=== PATIENT | male | born 1935 | race Caucasian/White ===

== ENCOUNTER → 2016-04-24 | Outpatient (CLI) | payer OTHER ==
[~2016-04-24] MED LIST: ACYC1CAP8 PO; AMLO-114 PO; ASCA500 PO; CHOL100010 PO; CLOP1TAB15 PO; DIFL0.0519 OPR; FINA5TAB PO; INSPMPNVLG; LISI-725 PO; LISI-792 PO; POLY335019 PO; TERA5CAP PO; VITA400C15 PO
[2016-04-24 12:31] LABS: BASO % 0.5 %; BASO ABS # 0.03 K/uL (0-0.2); COMPLETE YES; EOS % 2.2 %; HEMATOCRIT 38.8 % (42-52); LYMPH % 17.7 %; LYMPH ABS # 1.07 K/uL (1.2-3.4); MEAN CELL VOLUME 94.2 fL (80-100); MEAN CORPUSCULAR HEMOGLOBIN 31.6 pg (25-34); MEAN CORPUSCULAR HGB CONC 33.5 g/dl (32-36); MEAN PLATELET VOLUME 11.1 fL (7.4-10.4); MONO % 11.3 %; NEUT % 68.3 %; PLATELET COUNT 205 K/uL (130-400); RED BLOOD COUNT 4.12 M/uL (4.7-6.1); WHITE BLOOD COUNT 6.04 K/uL (4.8-10.8)
[2016-04-24 14:18] LABS: ALT/SGPT 23 U/L (12-78); AST/SGOT 15 U/L (15-37); BLOOD UREA NITROGEN 16 mg/dl (7-18); BUN/CREATININE RATIO 17.4 (10-20); CALCIUM 8.6 mg/dl (8.5-10.1); CARBON DIOXIDE 30 mmol/L (21-32); CHLORIDE 104 mmol/L (98-107); CHOLESTEROL 152 mg/dl (0-200); CREATININE 0.94 mg/dl (0.60-1.40); GLUCOSE 224 mg/dl (70-99); POTASSIUM 4.7 mmol/L (3.5-5.1); SODIUM 141 mmol/L (136-145); TRIGLYCERIDES 70 mg/dl (0-150); VERY LOW DENSITY LIPOPROT CALC 14 mg/dl
[2016-04-24 14:28] LABS: ALB/GLOB RATIO 1.4 (0.9-2); ALKALINE PHOSPHATASE 71 U/L (45-117); CHOLESTEROL/HDL RATIO 1.8; HDL CHOLESTEROL 84 mg/dl; LDL CHOLESTEROL CALCULATED 54 mg/dl; THYROID STIMULATING HORMONE 0.811 uIu/ml (0.300-4.500)
--- NOTE | 2016-04-28 08:54 | CODING QUERY MEDICAL NECESSITY ---
SUPPORTING DIAGNOSIS NEEDED Dr. Yuan, A supporting diagnosis is required for the test/procedure performed on this patient in order for us to be reimbursed by the patient's insurance. Please provide a supporting diagnosis for the following test/procedure listed below next to the test name along with your signature. *If there is no additional diagnosis for this patient that would support the following test/procedure please document that below next to the test/procedure. Test(s)/Procedure(s) that require a supporting diagnosis: * ([id number]) VITAMIN D ASSAY DIAGNOSIS: DATE OF SERVICE: 04/24/16 Provider Signature: Date: Thank you [facility] Information Management Once completed, please kindly fax back to [phone] For questions please call [phone]
== END | disposition home or self-care (01) ==
LOC: C.LABPBG 07:57
PROVIDERS: ATTEND Internal Medicine Geriatric Medicine
DX: E10.49 Type 1 diabetes mellitus with other diabetic neurological complication (principal); I10 Essential (primary) hypertension; E78.5 Hyperlipidemia, unspecified; D64.9 Anemia, unspecified

== ENCOUNTER → 2016-06-14 | Outpatient (CLI) | payer OTHER ==
[~2016-06-14] MED LIST changes: +ACYC-57 PO; -ACYC1CAP8 PO
== END ==
LOC: C.LABPBG 07:39
PROVIDERS: ATTEND Urology
DX: C67.9 Malignant neoplasm of bladder, unspecified (principal); R97.20 Elevated prostate specific antigen [PSA]; N40.1 Benign prostatic hyperplasia with lower urinary tract symptoms

== ENCOUNTER → 2016-07-18 | Outpatient (CLI) | payer OTHER ==
[2016-07-18 18:13] LABS: LYME DISEASE AB IGG NEG (NEG); LYME DISEASE AB IGM NEG (NEG)
== END | disposition home or self-care (01) ==
LOC: C.LABPBG 11:47
PROVIDERS: ATTEND Physician Assistant
DX: M25.551 Pain in right hip (principal)

== ENCOUNTER → 2016-08-08 | Outpatient (CLI) | payer OTHER | END | disposition home or self-care (01) | LOC: C.LABPBG 08:30 | PROVIDERS: ATTEND Physician Assistant | DX: M62.81 Muscle weakness (generalized) (principal) ==

== ENCOUNTER → 2016-08-21 | Outpatient (CLI) | payer OTHER ==
[2016-08-21 13:06] LABS: ESTIMATED AVERAGE GLUCOSE 177 mg/dl; HA1C FLAG Normal (Normal)
== END | disposition home or self-care (01) ==
LOC: C.LABPBG 09:29
PROVIDERS: ATTEND Nurse Practitioner Adult Health
DX: E10.49 Type 1 diabetes mellitus with other diabetic neurological complication (principal)

== ENCOUNTER → 2016-11-21 | Outpatient (CLI) | payer OTHER ==
[~2016-11-21] MED LIST changes: -ACYC-57 PO; +ACYC1CAP8 PO
[2016-11-21 11:55] LABS: BASO % 0.3 %; BASO ABS # 0.02 K/uL (0-0.2); COMPLETE YES; EOS % 1.1 %; IG% 0.2 %; LYMPH % 28.8 %; LYMPH ABS # 1.85 K/uL (1.2-3.4); MEAN CORPUSCULAR HEMOGLOBIN 32.2 pg (25-34); MEAN CORPUSCULAR HGB CONC 32.6 g/dl (32-36); MEAN PLATELET VOLUME 10.6 fL (7.4-10.4); MONO % 7.9 %; NEUT % 61.7 %; PLATELET COUNT 216 K/uL (130-400); RED BLOOD COUNT 3.94 M/uL (4.7-6.1); WHITE BLOOD COUNT 6.42 K/uL (4.8-10.8)
[2016-11-21 12:14] LABS: BLOOD UREA NITROGEN 22 mg/dl (7-18); BUN/CREATININE RATIO 22.7 (10-20); CALCIUM 8.6 mg/dl (8.5-10.1); CARBON DIOXIDE 30 mmol/L (21-32); CHLORIDE 103 mmol/L (98-107); CREATININE 0.95 mg/dl (0.60-1.40); GLUCOSE 237 mg/dl (70-99); POTASSIUM 3.8 mmol/L (3.5-5.1); SODIUM 138 mmol/L (136-145)
[2016-11-21 12:22] LABS: ESTIMATED AVERAGE GLUCOSE 140 mg/dl; HA1C FLAG Normal (Normal)
--- NOTE | 2016-12-04 14:33 | CODING QUERY MEDICAL NECESSITY ---
CQSUPPORTING DIAGNOSIS NEEDED A supporting diagnosis is required for the test/procedure performed on this patient in order for us to be reimbursed by the patient's insurance. Please provide a supporting diagnosis for the following test/procedure listed below next to the test name along with your signature. *If there is no additional diagnosis for this patient that would support the following test/procedure please document that below next to the test/procedure. Test(s)/Procedure(s) that require a supporting diagnosis: DOS 11/21/16 VITAMIN B12 TEST Provider Signature: Date: Thank you Tyesha [facility] Information Management Once completed, please kindly fax back to [phone] For questions please call [phone]
== END | disposition home or self-care (01) ==
LOC: C.LABPBG 07:28
PROVIDERS: ATTEND Internal Medicine Geriatric Medicine
DX: E10.49 Type 1 diabetes mellitus with other diabetic neurological complication (principal); Z79.4 Long term (current) use of insulin; I10 Essential (primary) hypertension; D64.9 Anemia, unspecified; M35.3 Polymyalgia rheumatica

== ENCOUNTER → 2016-12-12 | Outpatient (CLI) | payer OTHER ==
[2016-12-12 13:14] LABS: CHOLESTEROL/HDL RATIO 1.8
== END | disposition home or self-care (01) ==
LOC: C.LABPBG 07:38
PROVIDERS: ATTEND Internal Medicine Geriatric Medicine
DX: E78.5 Hyperlipidemia, unspecified (principal); M35.3 Polymyalgia rheumatica

== ENCOUNTER → 2016-12-28 | Outpatient (CLI) | payer OTHER ==
[~2016-12-28] MED LIST changes: +ACYC-57 PO; -ACYC1CAP8 PO
== END | disposition home or self-care (01) ==
LOC: C.MAMM 11:13
PROVIDERS: ATTEND Internal Medicine Geriatric Medicine
DX: M85.88 Other specified disorders of bone density and structure, other site (principal); M85.852 Other specified disorders of bone density and structure, left thigh; M85.851 Other specified disorders of bone density and structure, right thigh; Z51.81 Encounter for therapeutic drug level monitoring; Z79.52 Long term (current) use of systemic steroids

== ENCOUNTER → 2017-01-08 | Outpatient (CLI) | payer OTHER | END | disposition home or self-care (01) | LOC: C.LABPBG 08:44 | PROVIDERS: ATTEND Internal Medicine Rheumatology | DX: Z79.52 Long term (current) use of systemic steroids (principal); M54.2 Cervicalgia ==

== ENCOUNTER → 2017-02-12 | Outpatient (CLI) | payer OTHER ==
[2017-02-12 11:40] LABS: BASO % 0.2 %; BASO ABS # 0.02 K/uL (0-0.2); COMPLETE YES; EOS % 0.2 %; HEMATOCRIT 40.3 % (42-52); IG% 0.1 %; LYMPH % 12.4 %; LYMPH ABS # 1.03 K/uL (1.2-3.4); MEAN CORPUSCULAR HEMOGLOBIN 33.3 pg (25-34); MONO % 4.8 %; NEUT % 82.3 %; PLATELET COUNT 224 K/uL (130-400); RED BLOOD COUNT 3.99 M/uL (4.7-6.1); WHITE BLOOD COUNT 8.28 K/uL (4.8-10.8)
[2017-02-12 11:53] LABS: BLOOD UREA NITROGEN 22 mg/dl (7-18); BUN/CREATININE RATIO 23.8 (10-20); CALCIUM 8.8 mg/dl (8.5-10.1); CARBON DIOXIDE 30 mmol/L (21-32); CHLORIDE 104 mmol/L (98-107); CREATININE 0.94 mg/dl (0.60-1.40); GLUCOSE 183 mg/dl (70-99); POTASSIUM 4.2 mmol/L (3.5-5.1); SODIUM 139 mmol/L (136-145)
[2017-02-12 12:03] LABS: THYROID STIMULATING HORMONE 0.773 uIu/ml (0.300-4.500)
== END | disposition home or self-care (01) ==
LOC: C.LABPBG 08:43
PROVIDERS: ATTEND Internal Medicine Rheumatology
DX: E78.5 Hyperlipidemia, unspecified (principal); D64.9 Anemia, unspecified; M35.3 Polymyalgia rheumatica

== ENCOUNTER → 2017-02-22 | Outpatient (CLI) | payer OTHER ==
[2017-02-22 13:09] LABS: ESTIMATED AVERAGE GLUCOSE 140 mg/dl; HA1C FLAG Normal (Normal)
== END | disposition home or self-care (01) ==
LOC: C.LABPBG 09:55
PROVIDERS: ATTEND Nurse Practitioner Adult Health
DX: Z51.81 Encounter for therapeutic drug level monitoring (principal); Z79.52 Long term (current) use of systemic steroids; E78.5 Hyperlipidemia, unspecified; E10.49 Type 1 diabetes mellitus with other diabetic neurological complication; Z79.4 Long term (current) use of insulin

== ENCOUNTER → 2017-04-05 | Outpatient (CLI) | payer OTHER | END | disposition home or self-care (01) | LOC: C.LABPBG 08:42 | PROVIDERS: ATTEND Internal Medicine Rheumatology | DX: M35.3 Polymyalgia rheumatica (principal); Z51.81 Encounter for therapeutic drug level monitoring; Z79.52 Long term (current) use of systemic steroids ==

== ENCOUNTER → 2017-05-28 | Outpatient (CLI) | payer OTHER | END | disposition home or self-care (01) | LOC: C.LABPBG 08:41 | PROVIDERS: ATTEND Internal Medicine Rheumatology | DX: M35.3 Polymyalgia rheumatica (principal); Z79.52 Long term (current) use of systemic steroids ==

== ENCOUNTER → 2017-07-02 | Outpatient (CLI) | payer OTHER | END | disposition home or self-care (01) | LOC: C.LABPBG 07:57 | PROVIDERS: ATTEND Internal Medicine Rheumatology | DX: M35.3 Polymyalgia rheumatica (principal); Z79.52 Long term (current) use of systemic steroids; M54.5 Low back pain ==

== ENCOUNTER → 2017-07-23 | Outpatient (CLI) | payer OTHER ==
[2017-07-23 13:30] LABS: HEMOGLOBIN A1C 6.8 % (4.5-5.6)
== END | disposition home or self-care (01) ==
LOC: C.LABPBG 07:45
PROVIDERS: ATTEND Nurse Practitioner Adult Health
DX: E10.49 Type 1 diabetes mellitus with other diabetic neurological complication (principal)

== ENCOUNTER → 2017-10-01 | Outpatient (CLI) | payer OTHER ==
[~2017-10-01] MED LIST changes: -AMLO-114 PO; +AMLO10TA3 PO
== END | disposition home or self-care (01) ==
LOC: C.LABPBG 08:48
PROVIDERS: ATTEND Internal Medicine Rheumatology
DX: M54.2 Cervicalgia (principal); M35.3 Polymyalgia rheumatica; Z79.52 Long term (current) use of systemic steroids

== ENCOUNTER 2023-02-11 08:09 | Observation (INO) ==
--- NOTE | 2023-02-11 08:36 | Emergency Department Note ---
Impression & Plan Chest pain, Type 1 diabetes mellitus with hyperglycemia, Tick bite of forearm ED Provider Note Provider: Reji Angel MD DATE OF SERVICE: 02/11/2023 CHIEF COMPLAINT: Chest pain, tick bite, high blood sugars HISTORY OF PRESENT ILLNESS: Patient is a 87-year-old gentleman history of CAD without stent, type 1 diabetes, PMR, hypertension, and arthritis presenting here today with with several complaints. Initially, the noted this morning a tick bite on his right arm. Did not try to remove it as he felt he might not get it all and thus came here for evaluation. [facility]. Denies other tick bites. Patient states he was however experiencing chest pain this morning. Central across the chest with some radiation of the left arm. Worse with movement. Denies shortness of breath. Denies nausea or vomiting or abdominal pain. Patient did have breakfast this morning and chest discomfort started after this within the last hour or so. States maybe rarely he has had pain like this before but not regularly. Patient and say they also just checked his Dexcom and his blood sugars in the 400s. Evidently has some difficulty controlling his blood sugars but this is high. Again denies shortness of breath. Has been taking his medications and using his insulin pump. Is scheduled to see PCP this coming week as he noticed a small bump under his right nipple on his chest. Patient states hives and allergic reaction to aspirin and is on Plavix. Denies fever or URI symptoms. Some chronic slight leg swelling. No travel. PAST MEDICAL HISTORY: As noted above MEDICATIONS: Reviewed home medications SOCIAL HISTORY: PHYSICAL EXAM: GENERAL: alert and oriented in no acute distress on stretcher Head: normocephalic and atraumatic EYES: No injection, discharge or icterus. NECK: Trachea midline. ENT: Mucous membranes pink and moist. LUNGS: Airway patent. No retractions. Breath sounds clear with good air entry bilaterally. HEART: Regular rate and rhythm. No chest wall tenderness. Under the right nipple there is a small less than centimeter slight subcutaneous appreciable nodule. No surrounding erythema or crepitus. ABDOMEN: Soft and non-tender, without guarding or rebound. Dexcom in the left abdomen with insulin pump in the right abdomen in place. SKIN: Acyanotic, warm, dry, without rashes EXTREMITIES: 1+ bilateral lower extremity edema with the patient states is unchanged. Does have an embedded tick not severely engorged in the right proximal forearm on the medial anterior aspect with approximately 2 cm surrounding area of erythema without fluctuance, bleeding, area of clearing of the erythema NEUROLOGICAL: No focal deficits. No aphasia. No facial droop or slurred speech. Ambulatory. EK bpm sinus rhythm with PAC. No PVC. No acute ST segment elevation. QTc 428. CONTINUOUS CARDIAC MONITORING: was ordered and showed a heart rate of 80s-90s bpm in normal sinus rhythm Patient's laboratory studies and imaging reviewed. Differential includes Cardiac ischemia, aortic dissection, pulmonary embolism, pneumothorax, pneumonia, pericarditis, myocarditis, esophageal rupture, GERD, cholecystitis, pancreatitis, musculoskeletal, as well as other pathologies. IMPRESSION/MEDICAL DECISION MAKIN-year-old gentleman diabetic history of cardiac disease with multiple risk factors presenting here with several complaints. Patient with evidence of a tick in the right forearm. Not severely engorged. Some slight surrounding redness. Removed as below without complication. Discussed with patient given one-time dose of doxycycline. Lyme screen was sent here and returns negative but again tick bite just happened. Does not seem significantly cellulitic or as if there is compartment syndrome at this time. More significant complaint is his development of chest pain this morning. Tightness across chest and left arm. Multiple risk factors and some cardiac history. On Plavix. Patient reports severe allergy to aspirin and thus cannot take. EKG obtained without evidence of obvious STEMI. Troponin was sent. Chest x-ray obtained. Low suspicion this represents PE or dissection given the report of the complaint. Do incidentally noticed a small subcutaneous nodule under the nipple but doubt this is etiology of the pain he is currently experiencing and believe this would be stable for outpatient follow-up. In relation to the elevated blood sugar patient did just have breakfast. Chemistries obtained as well as a VBG but the patient does not appear to be in DKA at this time. Discussed with patient the elevated level here at 463 and patient self administered 4 units of insulin from his pump. Will monitor and recheck blood sugar. VBG reassuring without evidence of acidosis. Blood work is without significant acidosis with minimal anemia of 11.6. Some slight pseudohyponatremia 132. No other significant anion gap or electrolyte abnormalities. No acute findings consistent with hepatitis or pancreatitis. Initial troponin 8.7 is reassuring. Blood sugar recheck after an hour after he self administered insulin via his pump is going up some. Will give a small amount of IV insulin as well but IV fluid. While initial troponin is reassuring still having some ongoing discomfort. Discussed with him given his elevated blood sugars and his chest discomfort would strongly recommend that we monitor him here and observe him further in the hospital. Does have elevated heart score. Discussion with him and his although his left arm is now improved was agreeable to stay for further observation given this. Hospitalist contacted. DIAGNOSIS: Tick bite, chest pain, hyperglycemia due to type 1 diabetes DISPOSITION: Hospitalist will evaluate Patient was agreeable with this plan. ED procedure: Performed by myself Tick removal Discussed with the patient & at bedside, proceeded with verbal consent. Tweezers were utilized to remove tick in its entirety from the right proximal forearm. No retained parts noted. Tick removed in 2 segments and appears intact. About a 2 cm area of erythema but no clearing or bull's-eye. No fluctuance. No significant bleeding. Area was cleaned with an alcohol prep pad afterwards. 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 current use of systemic steroids Intermittent claudication Ataxia Benign familial tremor Benign prostatic hyperplasia with urinary obstruction Cerebral atherosclerosis Diabetic peripheral neuropathy Dyslipidemia Insulin pump in place Papillary transitional cell carcinoma of bladder Polymyalgia rheumatica Statin intolerance Chest pain Weakness Viral syndrome (04/27/13) Hypertension Diabetes Anxiety disorder Surgical History History of appendectomy History of hernia repair Hx laparoscopic cholecystectomy History of tonsillectomy and adenoidectomy Hx of colonoscopy complete colonoscopy Hx of cataract surgery History of hernia repair History of appendectomy History of cholecystectomy Family History Father Coronary heart disease Myocardial infarction Unknown Heart disease Lung cancer Mother No problems noted. Brother Myocardial infarction Denies family history of Ovarian cancer Prostate cancer Breast cancer Colorectal cancer Social History (Updated 11/13/22 @ 08:19 by Gia Murry LPN) Smoking Status: Former smoker Tobacco Type: Cigarettes Second Hand Exposure: No; Do You Dip or Chew Tobacco: Yes; Hx Alcohol Use: No Hx Substance Use: No Preferred Language: Emirati Communication Ability: Effective Hearing Ability: Use of Hearing Aid Sanitation Worker Required: No Beliefs That Will Affect Care: None marital status: Current Living Situation: Spouse current occupational status: retired Feels Safe at Home: Yes Childhood Exposure to Second-Hand Smoke: No Diet: regular Diet Comment: regular caffeine: Yes during the past year weight has: remained stable Dental Care, Regularly: Yes Physical Activity Frequency: 3-4 Times per Week Seatbelt Use: always Sunscreen Use: No Allergies Allergies Allergy/AdvReac Type Severity Reaction Status Date / Time celecoxib Allergy Intermediate Hives Verified 02/08/23 09:42 levofloxacin Allergy Intermediate Hives Verified 02/08/23 09:42 tramadol Allergy Intermediate Hives Verified 02/08/23 09:42 strawberry Allergy Mild RASH Verified 02/08/23 09:42 tomato Allergy Mild RASH Verified 02/08/23 09:42 acetaminophen Allergy Unknown Unknown Verified 02/08/23 09:42 aspirin Allergy Unknown Unknown Verified 02/08/23 09:42 atorvastatin Allergy Unknown Unknown Verified 02/08/23 09:42 fluvastatin Allergy Unknown Unknown Verified 02/08/23 09:42 Iodinated Contrast Media Allergy Unknown Unknown Verified 02/08/23 09:42 Penicillins Allergy Unknown Unknown Verified 02/08/23 09:42 simvastatin Allergy Unknown Unknown Verified 02/08/23 09:42 tamsulosin [From Flomax] AdvReac Mild Body aches Verified 02/08/23 09:42 rosuvastatin AdvReac Unknown Unknown Verified 02/08/23 09:42 Home Meds Home Medications Medication Instructions Recorded Confirmed ascorbic acid (vitamin C) 500 mg 500 mg PO DAILY 09/27/18 02/11/23 tablet acyclovir 400 mg tablet 400 mg PO BID 03/09/20 02/11/23 betamethasone dipropionate 0.05 % 1 applic topical DAILY PRN Skin 03/09/20 02/11/23 topical cream Irritation glucagon 0.5 mg/0.1 mL 1 mg subcut .COMPLEX PRN LOW BSG 08/10/21 02/11/23 subcutaneous auto-injector (Gvoke HypoPen 2-Pack) terazosin 5 mg capsule 5 mg PO DAILY 10/13/21 02/11/23 blood sugar diagnostic (OneTouch 04/20/22 02/08/23 Ultra Blue Test Strip) lancets (OneTouch UltraSoft #50 ea 04/20/22 02/08/23 Lancets) amlodipine 5 mg tablet 5 mg PO DAILY 11/13/22 02/11/23 Previous Rx's Medication Instructions Recorded cholecalciferol (vitamin D3) 25 1,000 units PO .COMPLEX #30 caps 08/20/18 mcg (1,000 unit) capsule clopidogrel 75 mg tablet (Plavix) 75 mg PO DAILY #30 tabs 08/20/18 finasteride 5 mg tablet (Proscar) 5 mg PO DAILY #30 tabs 08/20/18 Quick-Set Paradigm (infusion set #45 ea 04/01/19 for insulin pump) Dexcom G6 Sensor (blood-glucose #3 ea 01/16/22 sensor) Dexcom G6 Transmitter #1 ea 01/16/22 (blood-glucose transmitter) insulin syringe-needle U-100 1 mL #100 ea 01/16/22 31 gauge x 5/16" (BD Insulin Syringe Ultra-Fine) Dexcom G6 Supply Chain Systems Manager (blood-glucose #1 ea 01/31/22 meter,continuous) insulin aspart U-100 100 unit/mL 35 - 45 unit (0.35 - 0.45 mL) 07/20/22 subcutaneous solution (Novolog continuous subcutaneous infusion U-100 Insulin aspart) CONTINOUS #50 mL bicalutamide 50 mg tablet (Casodex) 50 mg PO DAILY #30 tabs 11/07/22 lisinopril 40 mg tablet (Zestril) 40 mg PO .COMPLEX #90 tabs 11/13/22 Results & Data (ED) Vital Signs Vital Signs - 24 hr 02/11/23 08:13 02/11/23 08:30 02/11/23 08:30 Temperature 36.8 C Temperature Source Temporal Artery Scan Pulse Rate 95 H Pulse Rate [Apical] Pulse Rate from SpO2 Sensor Pulse Rhythm [Apical] Pulse Strength [Apical] Respiratory Rate 18 Respiratory Effort / Characteristics Respiratory Depth Respiratory Pattern Blood Pressure 82/39 L Blood Pressure [Left Arm] Blood Pressure Mean 53 Blood Pressure Mean [Left Arm] Pulse Oximetry 95 Oxygen Delivery Method Room Air Room Air Room Air Sepsis Recent Fever Within 48 Hours No Sepsis New/Unexplained Change in Mental Status No Sepsis Action Taken by Nursing No Action Required 02/11/23 08:32 02/11/23 08:34 02/11/23 08:37 Temperature Temperature Source Pulse Rate 87 88 90 Pulse Rate [Apical] Pulse Rate from SpO2 Sensor 90 Pulse Rhythm [Apical] Pulse Strength [Apical] Respiratory Rate 17 16 Respiratory Effort / Characteristics Respiratory Depth Respiratory Pattern Blood Pressure Blood Pressure [Left Arm] Blood Pressure Mean Blood Pressure Mean [Left Arm] Pulse Oximetry 95 Oxygen Delivery Method Room Air Sepsis Recent Fever Within 48 Hours Sepsis New/Unexplained Change in Mental Status Sepsis Action Taken by Nursing 02/11/23 08:37 02/11/23 09:00 02/11/23 09:00 Temperature Temperature Source Pulse Rate 87 Pulse Rate [Apical] Pulse Rate from SpO2 Sensor 87 Pulse Rhythm [Apical] Pulse Strength [Apical] Respiratory Rate 18 Respiratory Effort / Characteristics Respiratory Depth Respiratory Pattern Blood Pressure 132/52 L 121/54 L Blood Pressure [Left Arm] Blood Pressure Mean 86 87 Blood Pressure Mean [Left Arm] Pulse Oximetry 93 Oxygen Delivery Method Room Air Sepsis Recent Fever Within 48 Hours Sepsis New/Unexplained Change in Mental Status Sepsis Action Taken by Nursing 02/11/23 09:30 02/11/23 09:30 02/11/23 10:00 Temperature Temperature Source Pulse Rate 87 89 Pulse Rate [Apical] Pulse Rate from SpO2 Sensor 75 90 Pulse Rhythm [Apical] Pulse Strength [Apical] Respiratory Rate 21 18 Respiratory Effort / Characteristics Respiratory Depth Respiratory Pattern Blood Pressure 131/50 L Blood Pressure [Left Arm] Blood Pressure Mean 67 Blood Pressure Mean [Left Arm] Pulse Oximetry 93 93 Oxygen Delivery Method Room Air Room Air Sepsis Recent Fever Within 48 Hours Sepsis New/Unexplained Change in Mental Status Sepsis Action Taken by Nursing 02/11/23 10:00 02/11/23 10:30 02/11/23 10:30 Temperature Temperature Source Pulse Rate 92 H Pulse Rate [Apical] Pulse Rate from SpO2 Sensor 91 H Pulse Rhythm [Apical] Pulse Strength [Apical] Respiratory Rate 20 Respiratory Effort / Characteristics Respiratory Depth Respiratory Pattern Blood Pressure 126/54 L 131/50 L Blood Pressure [Left Arm] Blood Pressure Mean 80 94 Blood Pressure Mean [Left Arm] Pulse Oximetry 94 Oxygen Delivery Method Room Air Sepsis Recent Fever Within 48 Hours Sepsis New/Unexplained Change in Mental Status Sepsis Action Taken by Nursing 02/11/23 11:00 02/11/23 11:00 02/11/23 11:30 Temperature Temperature Source Pulse Rate 88 69 Pulse Rate [Apical] Pulse Rate from SpO2 Sensor Pulse Rhythm [Apical] Pulse Strength [Apical] Respiratory Rate 20 15 Respiratory Effort / Characteristics Respiratory Depth Respiratory Pattern Blood Pressure 138/74 Blood Pressure [Left Arm] Blood Pressure Mean 109 Blood Pressure Mean [Left Arm] Pulse Oximetry Oxygen Delivery Method Sepsis Recent Fever Within 48 Hours Sepsis New/Unexplained Change in Mental Status Sepsis Action Taken by Nursing 02/11/23 12:00 02/11/23 12:00 02/11/23 12:30 Temperature Temperature Source Pulse Rate 79 80 Pulse Rate [Apical] Pulse Rate from SpO2 Sensor 74 Pulse Rhythm [Apical] Pulse Strength [Apical] Respiratory Rate 17 16 Respiratory Effort / Characteristics Respiratory Depth Respiratory Pattern Blood Pressure 139/71 Blood Pressure [Left Arm] Blood Pressure Mean 100 Blood Pressure Mean [Left Arm] Pulse Oximetry 91 Oxygen Delivery Method Room Air Sepsis Recent Fever Within 48 Hours Sepsis New/Unexplained Change in Mental Status Sepsis Action Taken by Nursing 02/11/23 12:30 02/11/23 12:33 02/11/23 12:52 Temperature Temperature Source Pulse Rate 79 Pulse Rate [Apical] 81 Pulse Rate from SpO2 Sensor Pulse Rhythm [Apical] Regular Pulse Strength [Apical] Normal Respiratory Rate 16 Respiratory Effort / Characteristics Non-Labored Spontaneous Respiratory Depth Normal Respiratory Pattern Regular Blood Pressure 138/59 L Blood Pressure [Left Arm] 138/59 L Blood Pressure Mean 91 Blood Pressure Mean [Left Arm] 85 Pulse Oximetry 93 Oxygen Delivery Method Room Air Sepsis Recent Fever Within 48 Hours Sepsis New/Unexplained Change in Mental Status Sepsis Action Taken by Nursing 02/11/23 13:00 02/11/23 13:00 02/11/23 13:30 Temperature Temperature Source Pulse Rate 79 96 H Pulse Rate [Apical] Pulse Rate from SpO2 Sensor 80 Pulse Rhythm [Apical] Pulse Strength [Apical] Respiratory Rate 17 24 Respiratory Effort / Characteristics Respiratory Depth Respiratory Pattern Blood Pressure 124/90 Blood Pressure [Left Arm] Blood Pressure Mean 96 Blood Pressure Mean [Left Arm] Pulse Oximetry 91 Oxygen Delivery Method Room Air Room Air Sepsis Recent Fever Within 48 Hours Sepsis New/Unexplained Change in Mental Status Sepsis Action Taken by Nursing 02/11/23 14:15 Temperature Temperature Source Pulse Rate 92 H Pulse Rate [Apical] Pulse Rate from SpO2 Sensor Pulse Rhythm [Apical] Pulse Strength [Apical] Respiratory Rate 25 H Respiratory Effort / Characteristics Respiratory Depth Respiratory Pattern Blood Pressure Blood Pressure [Left Arm] Blood Pressure Mean Blood Pressure Mean [Left Arm] Pulse Oximetry 92 Oxygen Delivery Method Room Air Sepsis Recent Fever Within 48 Hours Sepsis New/Unexplained Change in Mental Status Sepsis Action Taken by Nursing Laboratory Data 02/11/23 08:30 02/11/23 11:31 Lab Results 02/11/23 02/11/23 02/11/23 Range/Units 08:30 08:35 09:52 WBC 9.24 (4.8-10.8) K/ul RBC 3.60 L (4.70-6.10) M/uL Hgb 11.6 L (14.0-18.0) g/dl Hct 35.1 L (42.0-52.0) % MCV 97.5 (80.0-100.0) fL MCH 32.2 (25.0-34.0) pg MCHC 33.0 (32.0-36.0) g/dL RDW Std Deviation 46.3 (36.4-46.3) fL RDW Coeff of Yenifer 12.9 (11.5-14.5) % Plt Count 220 (130-400) K/uL MPV 10.9 (9.4-12.4) fL Immature Gran % (Auto) 0.3 % Neut % (Auto) 81.0 % Lymph % (Auto) 8.5 % [place] % (Auto) 7.9 % Eos % (Auto) 2.1 % Baso % (Auto) 0.2 % Neut # (Auto) 7.48 H (1.40-6.50) K/uL Lymph # (Auto) 0.79 L (1.20-3.40) K/uL [place] # (Auto) 0.73 H (0.11-0.59) K/uL Eos # (Auto) 0.19 (0.00-0.50) K/uL Baso # (Auto) 0.02 (0.00-0.20) K/uL Immature Gran # (Auto) 0.03 (0.01-0.20) K/uL PT 11.7 (9.0-12.0) Seconds INR 1.1 (0.9-1.1) APTT 28 (21-31) Seconds PTT Ratio 1.0 VBG pH 7.37 (7.36-7.41) VBG pCO2 39 (38-50) mmHg VBG pO2 60 mmHg VBG HCO3 23 mmol/L VBG O2 Saturation 91.7 % VBG Base Excess -2.5 mEq/L Sodium 132 L (136-145) mmol/L Potassium 4.8 (3.5-5.1) mmol/L Chloride 99 (98-107) mmol/L Carbon Dioxide 23 (21-32) mmol/L Anion Gap 10 (3-11) BUN 22 (6-23) mg/dl Creatinine 1.07 (0.6-1.4) mg/dl Est Cr Clr Drug Dosing 49.3 ml/min Est GFR ( Amer) 71.5 ml/min Est GFR (Non-Af Amer) 61.7 ml/min BUN/Creatinine Ratio 20.6 H (10-20) Glucose 475 H* (70-99(Fasting)) mg/dl POC Glucose 463 H* 497 H* (70-99) mg/dl Calcium 8.7 (8.6-10.3) mg/dl Phosphorus (2.5-4.9) mg/dl Magnesium (1.7-2.4) mg/dl Total Bilirubin 1.3 H (0.2-1.0) mg/dl AST 21 (13-39) U/L ALT 13 (7-52) U/L Alkaline Phosphatase 116 H (34-104) U/L Troponin I High Sens 8.7 (0-20) pg/ml Total Protein 5.8 L (6.0-8.3) gm/dl Albumin 3.6 (3.4-5.0) gm/dl Globulin 2.2 L (2.5-4.0) gm/dl Albumin/Globulin Ratio 1.6 (0.9-2) Lipase 13 (11-82) U/L Lyme Disease IgG Ab Negative (Negative) Lyme Disease IgM Ab Negative (Negative) 02/11/23 02/11/23 02/11/23 Range/Units 11:30 11:31 13:26 WBC (4.8-10.8) K/ul RBC (4.70-6.10) M/uL Hgb (14.0-18.0) g/dl Hct (42.0-52.0) % MCV (80.0-100.0) fL MCH (25.0-34.0) pg MCHC (32.0-36.0) g/dL RDW Std Deviation (36.4-46.3) fL RDW Coeff of Yenifer (11.5-14.5) % Plt Count (130-400) K/uL MPV (9.4-12.4) fL Immature Gran % (Auto) % Neut % (Auto) % Lymph % (Auto) % [place] % (Auto) % Eos % (Auto) % Baso % (Auto) % Neut # (Auto) (1.40-6.50) K/uL Lymph # (Auto) (1.20-3.40) K/uL [place] # (Auto) (0.11-0.59) K/uL Eos # (Auto) (0.00-0.50) K/uL Baso # (Auto) (0.00-0.20) K/uL Immature Gran # (Auto) (0.01-0.20) K/uL PT (9.0-12.0) Seconds INR (0.9-1.1) APTT (21-31) Seconds PTT Ratio VBG pH (7.36-7.41) VBG pCO2 (38-50) mmHg VBG pO2 mmHg VBG HCO3 mmol/L VBG O2 Saturation % VBG Base Excess mEq/L Sodium 133 L (136-145) mmol/L Potassium 4.3 (3.5-5.1) mmol/L Chloride 102 (98-107) mmol/L Carbon Dioxide 25 (21-32) mmol/L Anion Gap 6 (3-11) BUN 26 H (6-23) mg/dl Creatinine 1.05 (0.6-1.4) mg/dl Est Cr Clr Drug Dosing 50.2 ml/min Est GFR ( Amer) 73.1 ml/min Est GFR (Non-Af Amer) 63.1 ml/min BUN/Creatinine Ratio 24.8 H (10-20) Glucose 486 H* (70-99(Fasting)) mg/dl POC Glucose 405 H* 334 H* (70-99) mg/dl Calcium 7.9 L (8.6-10.3) mg/dl Phosphorus 2.0 L (2.5-4.9) mg/dl Magnesium 1.9 (1.7-2.4) mg/dl Total Bilirubin (0.2-1.0) mg/dl AST (13-39) U/L ALT (7-52) U/L Alkaline Phosphatase (34-104) U/L Troponin I High Sens 13.2 D (0-20) pg/ml Total Protein (6.0-8.3) gm/dl Albumin (3.4-5.0) gm/dl Globulin (2.5-4.0) gm/dl Albumin/Globulin Ratio (0.9-2) Lipase (11-82) U/L Lyme Disease IgG Ab (Negative) Lyme Disease IgM Ab (Negative) Administered Medications Insulin Human Regular 250 (units/ Sodium Chloride) 250 mls @ 1 mls/hr IV .Q24H [facility]; Protocol Stop: 03/13/23 11:44 Last Titration: 02/11/23 13:31 Dose: 1 units/hr, 1 mls/hr Documented By: ALCON Co-signed By: NELSON Admin: 02/11/23 12:10 Dose: 0.8 units/hr, 0.8 mls/hr Documented By: ALCON Co-signed By: REZA Potassium Chloride 20 meq/ (Parenteral Electrolytes) 1,010 mls @ 125 mls/hr IV .Q8H5M CHARLIE Stop: 03/13/23 11:59 Last Admin: 02/11/23 12:29 Dose: 125 mls/hr Documented By: ALCON Discontinued Medications Doxycycline Hyclate (Doxycycline Hyclate 100 Mg Cap) 200 mg PO NOW STA Stop: 02/11/23 10:27 Last Admin: 02/11/23 11:01 Dose: 200 mg Documented By: REZA Sodium Chloride (Nss) 500 mls @ 999 mls/hr IV .Q31M ONE Stop: 02/11/23 10:37 Last Infusion: 02/11/23 11:10 Dose: Infused Documented By: Admin: 02/11/23 10:24 Dose: 999 mls/hr Documented By: ALCON Sodium Chloride (Nss) 1,000 mls @ 999 mls/hr IV .Q1H1M ONE Stop: 02/11/23 12:00 Last Infusion: 02/11/23 12:10 Dose: Infused Documented By: Admin: 02/11/23 11:09 Dose: 999 mls/hr Documented By: NELSON Famotidine 20 mg/ Syringe 5 mls @ 2.5 mls/min IV NOW ONE Stop: 02/11/23 11:31 Last Admin: 02/11/23 11:31 Dose: 2.5 mls/min Documented By: ALCON Insulin Human Regular (Novolin-R Insulin Per Unit Charge) 5 units IV NOW STA Stop: 02/11/23 10:08 Last Admin: 02/11/23 10:25 Dose: 5 units Documented By: ALCON Co-signed By: AM Imaging Data Radiologist's Impression: Chest X-Ray 02/11/23 08:16 XR chest 1V portable HISTORY: 87 years-old Male Chest pain, nonspecific COMPARISON: 08/11/2022 TECHNIQUE: AP view of the chest FINDINGS: Cardiac silhouette is upper limits of normal in size. Mild chronic interstitial coarsening. No pneumothorax, pleural effusion or overt pulmonary edema. Mild linear left basilar atelectasis versus scarring. Healed chronic left rib fractures. Left shoulder rotator cuff calcific tendinosis. IMPRESSION: No acute process of the chest. ACT 112: Negative or not required by law. The above report was generated using voice recognition software. It may contain grammatical, syntax or spelling errors. Electronically signed by: Davis Wray M.D. 02/11/2023 9:10 AM Discharge Plan Visit Data Chief Complaint: Chest Pain Stated Complaint: CHEST PAIN, TICK BITE ED Provider: Reji Angel Discharge Problem: Chest pain, Type 1 diabetes mellitus with hyperglycemia, Tick bite of forearm Patient Disposition: Being Evaluated by Hospitalist Forms Stand Alone Forms: [facility] Prescriptions Prescriptions: No Action (DME) Quick-Set Paradigm Infusion Set See Rx Instructions .ROUTE .MEDSUPPLY Qty: 45 3RF Rx Instructions: insert a new one every 2-3 days (DME) Dexcom G6 Supply Chain Systems Manager Misc See Rx Instructions .Route Qty: 1 0RF Rx Instructions: Use to monitor blood sugars daily cholecalciferol (vitamin D3) 1,000 unit capsule 1,000 units PO .COMPLEX Qty: 30 5RF Rx Instructions: 1,000 unit PO Take one tablet in the summer - 3 tablets in the winter. ; clopidogrel [Plavix] 75 mg tablet 75 mg PO DAILY Qty: 30 5RF finasteride [Proscar] 5 mg tablet 5 mg PO DAILY Qty: 30 5RF terazosin 5 mg capsule 5 mg PO DAILY (DME) Dexcom G6 Sensor Device See Rx Instructions .Route Qty: 3 5RF Rx Instructions: change every 10 days (DME) Dexcom G6 Transmitter Device See Rx Instructions .Route Qty: 1 3RF Rx Instructions: change every 90 days (DME) insulin syringe-needle U-100 [BD Insulin Syringe Ultra-Fine] 1 mL 31 gauge x 5/16 syringe See Rx Instructions .Route Qty: 100 6RF Rx Instructions: use for Novolog incase of pump failure insulin aspart U-100 [Novolog U-100 Insulin aspart] 100 unit/mL solution 35 - 45 unit continuous subcutaneous infusion CONTINOUS Qty: 50 3RF Rx Instructions: Pt uses pump 35-45 units daily. (DME) OneTouch Ultra Blue Test Strip Strip See Rx Instructions .ROUTE .MEDSUPPLY Rx Instructions: Test blood sugar once daily PRN acyclovir 400 mg tablet 400 mg PO BID betamethasone dipropionate 0.05 % cream 1 applic topical DAILY PRN (Reason: Skin Irritation) amlodipine 5 mg tablet 5 mg PO DAILY lisinopril [Zestril] 40 mg tablet 40 mg PO .COMPLEX Qty: 90 3RF Rx Instructions: 40 mg orally TAKE ONE 1 PILL IN AM; ascorbic acid (vitamin C) 500 mg tablet 500 mg PO DAILY (DME) lancets [OneTouch UltraSoft Lancets] Misc See Rx Instructions .ROUTE .MEDSUPPLY Qty: 50 Rx Instructions: Test blood sugar once daily PRN bicalutamide [Casodex] 50 mg tablet 50 mg PO DAILY Qty: 30 5RF Gvoke HypoPen 2-Pack 0.5 mg/0.1 mL auto-injector 1 mg subcut .COMPLEX PRN (Reason: LOW BSG) Rx Instructions: 1 mg subcut every 20 minutes until target blood sugar reached; Referrals Referrals: Trevor Torres CRNP [Nurse Practitioner] - Discharge Problem: Chest pain Qualifiers: Chest pain type: unspecified Qualified Code(s): R07.9 - Chest pain, unspecified Tick bite of forearm Qualifiers: Encounter type: initial encounter Laterality: right Qualified Code(s): S50.861A - Insect bite (nonvenomous) of right forearm, initial encounter
[2023-02-11 08:48] LABS: Base Excess VBG -2.5 mEq/L; HCO3 VBG 23 mmol/L; Oxygen Saturation VBG 91.7 %; PCO2 VBG 39 mmHg (38-50); PO2 VBG 60 mmHg; pH VBG 7.37 (7.36-7.41)
[2023-02-11 08:56] LABS: Basophils # (auto) 0.02 K/uL (0.00-0.20); Basophils % (auto) 0.2 %; Eosinophils # (auto) 0.19 K/uL (0.00-0.50); Eosinophils % (auto) 2.1 %; Hematocrit (blood only) 35.1 % (42.0-52.0); Hemoglobin 11.6 g/dl (14.0-18.0); Immature Granulocytes # (auto) 0.03 K/uL (0.01-0.20); Immature Granulocytes % (auto) 0.3 %; Lymphocytes # (auto) 0.79 K/uL (1.20-3.40); Lymphocytes % (auto) 8.5 %; Mean Corpuscular Hemoglobin 32.2 pg (25.0-34.0); Mean Corpuscular Volume 97.5 fL (80.0-100.0); Mean Platelet Volume 10.9 fL (9.4-12.4); Monocytes # (auto) 0.73 K/uL (0.11-0.59); Monocytes % (auto) 7.9 %; Neutrophils # (auto) 7.48 K/uL (1.40-6.50); Platelet Count 220 K/uL (130-400); RDW Coefficient of Variation 12.9 % (11.5-14.5); RDW Standard Deviation 46.3 fL (36.4-46.3); White Blood Count 9.24 K/ul (4.8-10.8)
--- NOTE | 2023-02-11 09:11 | XRay Report ---
XR chest 1V portable HISTORY: 87 years-old Male Chest pain, nonspecific COMPARISON: 08/11/2022 TECHNIQUE: AP view of the chest FINDINGS: Cardiac silhouette is upper limits of normal in size. Mild chronic interstitial coarsening. No pneumo thorax, pleural effusion or overt pulmonary edema. Mild linear left basilar atelectasis versus scarri ng. Healed chronic left rib fractures. Left shoulder rotator cuff calcific tendinosis. IMPRESSION: No acute process of the chest. ACT 112: Negative or not required by law. The above report was generated using voice recognition software. It may contain grammatical, syntax o r spelling errors. Electronically signed by: Davis Wray M.D. 02/11/2023 9:10 AM
[2023-02-11 09:20] LABS: Albumin Globulin Ratio 1.6 (0.9-2); Albumin Level 3.6 gm/dl (3.4-5.0); BUN Creatinine Ratio 20.6 (10-20); Bilirubin,Total 1.3 mg/dl (0.2-1.0); Calcium 8.7 mg/dl (8.6-10.3); Creatinine Clr Calc Pharmacy 49.3 ml/min; Est GFR (African American) 71.5 ml/min; Est GFR (Non-African American) 61.7 ml/min; Globulin 2.2 gm/dl (2.5-4.0); Potassium 4.8 mmol/L (3.5-5.1); Total Protein 5.8 gm/dl (6.0-8.3); Troponin I High Sensitivity 8.7 pg/ml (0-20)
[2023-02-11 09:21] LABS: INR 1.1 (0.9-1.1); Partial Thromboplastin Time 28 Seconds (21-31); Prothrombin Time 11.7 Seconds (9.0-12.0)
[2023-02-11 09:39] LABS: Lyme Ab IgG w/WB Rflx Negative (Negative); Lyme Ab IgM w/WB Rflx Negative (Negative)
[2023-02-11] MEDS ORDERED: NovoLIN-R INSULIN PER UNIT CHARGE IV STA (10:07)
[2023-02-11] MEDS ORDERED: SODIUM CHLORIDE 0.9% 500 ML IV ONE (10:07)
[2023-02-11] MEDS ORDERED: DOXYCYCLINE HYCLATE 100 MG CAP PO STA (10:26)
--- NOTE | 2023-02-11 10:58 | History & Physical Report ---
Date of Service February 11, 2023 Assessment & Plan (1) Chest pain: Plan: Patient endorses transverse, "crushing" chest pain across the lower chest that developed around 0700 on 02/11; constant for 2-3h No radiation down the arms or to back; 8/10 at worst EKG revealed sinus rhythm with PACs at 87 bpm; QTc 428 Troponin WNL at 8.7-->13.2 Continuous telemetry monitoring Trend BMP q4h Trend Phosphorous q4h Trend Magnesium q4h Trend VBG q4h A.m. CBC, BMP, mag, troponin (2) Type 1 diabetes mellitus with hyperglycemia: Plan: Patient uses Dexcom and insulin pump at home, but notes episodes of severe hyperglycemia in the 400mg/dL range at home, as well as rebound hypoglycemia in the 40-50mg/dL range Patient follows with diabetes clinic Last A1c at 7.3% on 11/01/2022 POC glucose 497 at time of admission Anion gap WNL at 10 Insulin drip started in the ED with BSG q1h HHS protocol in place Pharmacy glycemic consult Adjust regimen as needed T1DM diet Discussed basal/bolus balance Continue to monitor for hypoglycemia Diabetic education consult Am A1c (3) Tick bite of forearm: Plan: Tick removed from patient's right medial elbow in the ED Patient denies seeing any rashes on his body this past week, but notes he was out walking in the [place] on 02/10 Initial Lyme negative Prophylactic doxycycline 200 mg p.o. given in the ED Famotidine 20 mg IV added for GI discomfort (4) Non-occlusive coronary artery disease: Plan: Patient sustained non-ST segment FL in 2003 Patient takes Plavix 75 mg daily, and reports that he is allergic to aspirin (hives) Continue Plavix (5) Dyslipidemia: Plan: Statin intolerance (6) Papillary transitional cell carcinoma of bladder: Plan: Bladder cancer/LUTS Follows with [facility]; unable to have surgery, per patient Continue finasteride and terazosin (7) Benign prostatic hyperplasia with urinary obstruction: Plan: Continue finasteride (8) Insulin pump in place: Plan: Pause pump while inpatient (9) Hypertension: Plan: Continue amlodipine, lisinopril (10) Lump of right breast: Plan: No overlying cellulitis, nonerythematous, NTP, not warm to touch US right breast ordered, pending Plan Disposition: Admit to PCU telemtetry DNR/DNI T2DM diet (strict monitoring of insulin) VTE PPx: SCDs and heparin 5000u SQ q12h History of Present Illness Chief Complaint: Chest pain Primary Care Provider: Leonela Levine DO Beni is an 87-year-old male with PMH of T1DM, tick bite, statin myopathy, PMR, HTN, dyslipidemia, and nonocclusive CAD. He presented for transverse lower chest pain that developed around 7 AM on the morning of 02/11. Patient's (Luli) is present at the bedside and provides additional history. The patient reports that he developed gradual onset of dull chest pain that lasted for around 2 to 3 hours between 7 AM and 10 AM on 02/11. He describes the pain as "crushing". No radiation to the left arm or to the back. He did not take any pain medication at home. He reports that he tried to walk on the treadmill this morning, as he thought the pain was due to indigestion, however movement did not alleviate the pain. He rated the pain 8/10 at its worst. On arrival in the ED, patient found a tick (engorged) on his right medial elbow, which was removed in the ED. He did report that he was out walking in the [facility] on 02/10. Patient has an extensive history of T1DM and uses a Dexcom and pump for diabetes. He confused 4u insulin this morning, and received an additional 5u in the ED. Reports that he took all of his regular morning medications, including Plavix. The only recent change in medication was for his prostate (finasteride). No history of tick bites or Lyme disease. Patient denies smoking, alcohol use, vaping, and recreational drug use. He endorses using chewing snuff. Vitals stable at time of admission. ED course: Tick removal Regular insulin 5u IV NSS 500 mL Doxycycline 200 mg p.o. ROS: Patient endorses headache (which she believes is secondary to high sugar), transverse chest pain (which has largely resolved in the ED), joint aches, wrist swelling that developed 2 weeks ago, lump under right breast, as well as constipation. Patient denies fever, rashes, bull's-eye rashes, chills, night sweats, dizziness, lightheadedness, SOB, pleuritic CP, abdominal pain, N/V/D, urinary symptoms, burning with urination, numbness or tingling going down the arms or legs. Dexcom/pump settings: Basal 13.65 daily; max basal 2u/hr, max bolus 10u. Patient's reports that his insulin levels are not well-controlled at home, and that he commonly bounces between hyperglycemia (in the 300mg/dL range) and hypoglycemia (in the 40-50mg/dL range). Patient reports he is aspirin (hives) as well as imaging dye/contrast (face swelling). Please see Dr. Varghese's attestation for any changes to treatment plan. Allergies Allergy/AdvReac Type Severity Reaction Status Date / Time celecoxib Allergy Intermediate Hives Verified 02/08/23 09:42 levofloxacin Allergy Intermediate Hives Verified 02/08/23 09:42 tramadol Allergy Intermediate Hives Verified 02/08/23 09:42 strawberry Allergy Mild RASH Verified 02/08/23 09:42 tomato Allergy Mild RASH Verified 02/08/23 09:42 acetaminophen Allergy Unknown Unknown Verified 02/08/23 09:42 aspirin Allergy Unknown Unknown Verified 02/08/23 09:42 atorvastatin Allergy Unknown Unknown Verified 02/08/23 09:42 fluvastatin Allergy Unknown Unknown Verified 02/08/23 09:42 Iodinated Contrast Media Allergy Unknown Unknown Verified 02/08/23 09:42 Penicillins Allergy Unknown Unknown Verified 02/08/23 09:42 simvastatin Allergy Unknown Unknown Verified 02/08/23 09:42 tamsulosin [From Flomax] AdvReac Mild Body aches Verified 02/08/23 09:42 rosuvastatin AdvReac Unknown Unknown Verified 02/08/23 09:42 Home Medications Medication Instructions Recorded Confirmed Type cholecalciferol (vitamin D3) 25 1,000 units PO .COMPLEX #30 caps 08/20/18 02/11/23 Rx mcg (1,000 unit) capsule clopidogrel 75 mg tablet (Plavix) 75 mg PO DAILY #30 tabs 08/20/18 02/11/23 Rx finasteride 5 mg tablet (Proscar) 5 mg PO DAILY #30 tabs 08/20/18 02/11/23 Rx ascorbic acid (vitamin C) 500 mg 500 mg PO DAILY 09/27/18 02/11/23 History tablet Quick-Set Paradigm (infusion set #45 ea 04/01/19 02/08/23 Rx for insulin pump) acyclovir 400 mg tablet 400 mg PO BID 03/09/20 02/11/23 History betamethasone dipropionate 0.05 % 1 applic topical DAILY PRN Skin 03/09/20 02/11/23 History topical cream Irritation glucagon 0.5 mg/0.1 mL 1 mg subcut .COMPLEX PRN LOW BSG 08/10/21 02/11/23 History subcutaneous auto-injector (Gvoke HypoPen 2-Pack) terazosin 5 mg capsule 5 mg PO DAILY 10/13/21 02/11/23 History Dexcom G6 Sensor (blood-glucose #3 ea 01/16/22 02/08/23 Rx sensor) Dexcom G6 Transmitter #1 ea 01/16/22 02/08/23 Rx (blood-glucose transmitter) insulin syringe-needle U-100 1 mL #100 ea 01/16/22 02/08/23 Rx 31 gauge x 5/16" (BD Insulin Syringe Ultra-Fine) Dexcom G6 Microfilm Camera Operator (blood-glucose #1 ea 01/31/22 02/08/23 Rx meter,continuous) blood sugar diagnostic (OneTouch 04/20/22 02/08/23 History Ultra Blue Test Strip) lancets (OneTouch UltraSoft #50 ea 04/20/22 02/08/23 History Lancets) insulin aspart U-100 100 unit/mL 35 - 45 unit (0.35 - 0.45 mL) 07/20/22 02/11/23 Rx subcutaneous solution (Novolog continuous subcutaneous infusion U-100 Insulin aspart) CONTINOUS #50 mL bicalutamide 50 mg tablet (Casodex) 50 mg PO DAILY #30 tabs 11/07/22 02/11/23 Rx amlodipine 5 mg tablet 5 mg PO DAILY 11/13/22 02/11/23 History lisinopril 40 mg tablet (Zestril) 40 mg PO .COMPLEX #90 tabs 11/13/22 02/11/23 Rx Past Med/Surg History Medical History (Updated 02/11/23 @ 12:06 by Flaquito Tam PA-C) 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 Spermatocele Neck pain 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 Carpal tunnel syndrome of left wrist care home current use of systemic steroids Intermittent claudication Ataxia Benign familial tremor Benign prostatic hyperplasia with urinary obstruction Cerebral atherosclerosis Diabetic peripheral neuropathy Dyslipidemia Insulin pump in place Papillary transitional cell carcinoma of bladder Polymyalgia rheumatica Statin intolerance Chest pain Weakness Viral syndrome (04/27/13) Hypertension Diabetes Anxiety disorder Surgical History History of appendectomy History of hernia repair Hx laparoscopic cholecystectomy History of tonsillectomy and adenoidectomy Hx of colonoscopy complete colonoscopy Hx of cataract surgery History of hernia repair History of appendectomy History of cholecystectomy Family History Father Coronary heart disease Myocardial infarction Unknown Heart disease Lung cancer Mother No problems noted. Brother Myocardial infarction Denies family history of Ovarian cancer Prostate cancer Breast cancer Colorectal cancer Social History (Updated 11/13/22 @ 08:19 by Gia Murry LPN) Smoking Status: Former smoker Tobacco Type: Cigarettes Second Hand Exposure: No; Do You Dip or Chew Tobacco: Yes; Hx Alcohol Use: No Hx Substance Use: No Preferred Language: Danish Communication Ability: Effective Hearing Ability: Use of Hearing Aid Managed Care Coordinator Required: No Beliefs That Will Affect Care: None marital status: Current Living Situation: Spouse current occupational status: retired Feels Safe at Home: Yes Childhood Exposure to Second-Hand Smoke: No Diet: regular Diet Comment: regular caffeine: Yes during the past year weight has: remained stable Dental Care, Regularly: Yes Physical Activity Frequency: 3-4 Times per Week Seatbelt Use: always Sunscreen Use: No Review of Systems Review of Systems: See HPI above Physical Exam Physical Exam: General: no acute distress; pleasant affect; non-toxic appearing; cooperative HEENT: normocephalic, atraumatic; no scleral icterus; PERRLA w/ EOMs intact; moist mucus membrane; vision and hearing grossly intact Neck: supple; no JVD; no lymphadenopathy; trachea midline Skin: warm, dry without signs of tenting; no cyanosis; no rashes, bruising, lesi ons, or erythema noted on the abdomen/back CV: chest wall NTP; 1 cm, nonfirm lump palpated at the right lateral pectoral muscle, NTP, not warm to touch, nonerythematous; RRR; S1/S2 normal; no murmurs/ rubs/gallops; pulses intact and symmetric at radial, DP, and PT Lungs: no acute respiratory distress; symmetrical chest wall expansion; clear breath sounds across all lung marquez w/o adventitious sounds; no wheezing ABD: Soft, NTP; BS present; no rebound/guarding; no ascites; no distention; negative CVA tenderness MSK: no tics or fasciculations; no edema noted in the LEs b/l Neuro: A&Ox3; normal mood and affect; fluent speech; no focal deficits; sensation grossly intact in the LEs B/L Results & Data Results & Data Vital Signs (Past 12 Hours) Vital Signs Temp Pulse Resp BP Pulse Ox O2 Del Method 02/11/23 10:00 126/54 L 02/11/23 10:00 89 18 93 Room Air 02/11/23 09:30 87 21 93 Room Air 02/11/23 09:30 131/50 L 02/11/23 09:00 87 18 93 Room Air 02/11/23 09:00 121/54 L 02/11/23 08:37 132/52 L 02/11/23 08:37 90 16 95 Room Air 02/11/23 08:34 88 02/11/23 08:32 87 17 02/11/23 08:30 Room Air 02/11/23 08:30 Room Air 02/11/23 08:13 36.8 C 95 H 18 82/39 L 95 Room Air Laboratory Results Abnormal lab results 02/11/23 02/11/23 02/11/23 Range/Units 08:30 08:35 09:52 RBC 3.60 L (4.70-6.10) M/uL Hgb 11.6 L (14.0-18.0) g/dl Hct 35.1 L (42.0-52.0) % Neut # (Auto) 7.48 H (1.40-6.50) K/uL Lymph # (Auto) 0.79 L (1.20-3.40) K/uL [place] # (Auto) 0.73 H (0.11-0.59) K/uL Sodium 132 L (136-145) mmol/L BUN/Creatinine Ratio 20.6 H (10-20) Glucose 475 H* (70-99(Fasting)) mg/dl POC Glucose 463 H* 497 H* (70-99) mg/dl Total Bilirubin 1.3 H (0.2-1.0) mg/dl Alkaline Phosphatase 116 H (34-104) U/L Total Protein 5.8 L (6.0-8.3) gm/dl Globulin 2.2 L (2.5-4.0) gm/dl 02/11/23 Range/Units 11:30 RBC (4.70-6.10) M/uL Hgb (14.0-18.0) g/dl Hct (42.0-52.0) % Neut # (Auto) (1.40-6.50) K/uL Lymph # (Auto) (1.20-3.40) K/uL [place] # (Auto) (0.11-0.59) K/uL Sodium (136-145) mmol/L BUN/Creatinine Ratio (10-20) Glucose (70-99(Fasting)) mg/dl POC Glucose 405 H* (70-99) mg/dl Total Bilirubin (0.2-1.0) mg/dl Alkaline Phosphatase (34-104) U/L Total Protein (6.0-8.3) gm/dl Globulin (2.5-4.0) gm/dl Diagnostic Findings Chest X-Ray 02/11/23 08:16 XR chest 1V portable HISTORY: 87 years-old Male Chest pain, nonspecific COMPARISON: 08/11/2022 TECHNIQUE: AP view of the chest FINDINGS: Cardiac silhouette is upper limits of normal in size. Mild chronic interstitial coarsening. No pneumothorax, pleural effusion or overt pulmonary edema. Mild linear left basilar atelectasis versus scarring. Healed chronic left rib fractures. Left shoulder rotator cuff calcific tendinosis. IMPRESSION: No acute process of the chest. ACT 112: Negative or not required by law. The above report was generated using voice recognition software. It may contain grammatical, syntax or spelling errors. Electronically signed by: Davis Wray M.D. 02/11/2023 9:10 AM Code Status & VTE Plan Code Status DNR/DNI VTE Prophylaxis Plan VTE Prophylaxis will be ordered: Yes Supervising Physician Co-Signing Physician Notes Patient seen and examined, chart reviewed, case discussed with Flaquito Tam, VIDA and I agree with the assessment and plan as above except as otherwise noted Labs and images reviewed Came in for a tick bite to his wrist. No fevers, chills, or sweats. no dizziness/LH/presyncope. +mild h/a which is common when his sugar is high. No inspiratory/pleuritic pain. No nausea/vomiting. Does home a hsitory of some bowl troubles for which he takes intermittent miralax which works bu tmakes his bowls loose. Peeing much less than normal, and has LUTS due to enlarged prostate. Not a surgical BPH candidate unfortunately, too high anesthesia risk. Whe [facility] ER also noted he had 'sudden onset pressure like crushing' chest pain with some radiation into his left shoulder 7-8/10 in intensity. Completely gone now. Took plaavix this morning, severe allergy to aspirin. No hx heart failure, no orthopnea. +mild leg swelling. Contrast allergy. Had contrast once 'and face swolled up huge, whole body swelled.' Did not need to be intubated, but was observed for 24 hours with 'some pills to help.' Type 1 DM. Uses dexcom. Patient reports that he is frequently alarming over the maximum measure of 400 generally every night. He tends to go low during the day, and then has very large meals including at dinner which overshoot his blood sugar to compensate. He reports his blood sugar generally alarm at night, reports he doesn't wake up due to this and is generally very high in the morning Lungs CTAB. Trace pretibial edema. HR regular, -mrAnnamarie Mucous membranes tacky. Type I DM, hyperglycemia, volume contraction: No DKA at time of admission. patient is volume contracted. On arrival to ER 463 and subsequently ezequiel to 497. He has received 5 units of IV insulin by the ER, and he gave himself 4 units of subcu insulin via his pump. Has received 5 and cc normal saline, additional was held due to concerns of lower extremity edema although he has no history of heart failure and lungs are clear mucous membranes are dry. Initial liter of saline ordered and patient started on Plasma-Lyte with potassium as otherwise notedDue to severe hyperglycemia with chest pain and uptrending blood sugar will pause patient's pump and convert to IV insulin drip until euglycemic. Pump was paused at the bedside, patient agreeable to not restarting until after his blood sugars are stable patient reports he is hypoglycemic during the day and then eats to bring his blood sugar up and then overshoots.? Whether he would benefit from a lower basal rate with calculated and slightly increased carb ratio/mealtime dose. Currently patient guesstimates his insulin boluses manually. Normal area into the curve/A1c of 7.3 which is reasonable liberalized for age likely reflects significant lows in addition to daily nighttime highs. Will consult tobacco prevention health educator for conversion and adjustments, patient is somewhat resistant to this but expresses an understanding that hypoglycemic episodes can be life-threatening and persistent daily hyperglycemia will contribute to heart, renal, and vascular disease. As patient's potassium is upper range of normal Plasma-Lyte with +potassium were started. Chest pain: Patient has chest pain/pressure in his chest which radiated to his left shoulder which started 7:00 and lasted for several hours. Has a history of nonocclusive CAD for which he takes Plavix. He initially thought this was gas but did not improve like normally would. No ischemic findings on EKG, initial high-sensitivity troponin is negative. Repeat troponin pending. Chest pain is resolved at bedside admission. O patient has a severe aspirin allergy, received a dose and had severe facial and generalized body swelling. He did take his Plavix this morning Right breast pain: Patient has a area at the lateral right areola which has been tender and that he felt a lump in that area. There is no overriding erythema/warmth/tenderness, and no abnormality noted on chest x-ray. Does not appear consistent with mastitis and no overlying cellulitis. Limited ultrasound of the breast pending. Tick bite: Patient had a engorged tick removed while in the ER. He has not had erythema migrans, fever/chills and his Lyme serology is negative. Due to removal of a engorged tick patient was given prophylactic 200 mg dose one-time of doxycycline Agree with management of chronic issues otherwise as above PG Care Time/CCT Total # of Minutes Spent Total Time Spent with Patient: Total time spent is greater than 50% in coordination of care (as documented) at patient's floor/unit and/or counseling patient: [place] [address] INT INP/OBS CARE 3/75MIN Patient Type New History Comprehensive Exam Comprehensive Medical Decision Making High Complexity Diagnoses Chest pain R07.9 Chest pain type: unspecified Type 1 diabetes mellitus with hyperglycemia E10.65 Tick bite of forearm S50.861A; W57.XXXA Encounter type: initial encounter Laterality: right Non-occlusive coronary artery disease I25.10 Dyslipidemia E78.5 Papillary transitional cell carcinoma of bladder C67.9 Benign prostatic hyperplasia with urinary obstruction N40.1; N13.[address] Z96.41 Essential hypertension I10 Hypertension type: essential hypertension Lump of right breast N63.10 (1) Chest pain Chest pain type: unspecified Qualified Code(s): R07.9 - Chest pain, unspecified (3) Tick bite of forearm Encounter type: initial encounter Laterality: right Qualified Code(s): S50.861A - Insect bite (nonvenomous) of right forearm, initial encounter; W57.XXXA - Bitten or stung by nonvenomous insect and other nonvenomous arthropods, initial encounter (9) Hypertension Hypertension type: essential hypertension Qualified Code(s): I10 - Essential (primary) hypertension
[2023-02-11] MEDS ORDERED: SODIUM CHLORIDE 0.9% 1,000 ML IV ONE (11:00)
[2023-02-11] MEDS ORDERED: FAMOTIDINE 20 MG in SYRINGE 3 ML IV ONE (11:30)
[2023-02-11] MEDS ORDERED: MODERATE STRESS LEVEL ONE (11:33)
[2023-02-11] MEDS ORDERED: STAT IV Infusion **Titration per Protocol STA (11:33)
[2023-02-11] MEDS ORDERED: INSULIN PROTOCOL GOAL RANGE ONE (11:33)
[2023-02-11] MEDS ORDERED: PLASMA-LYTE A 1,000 ML IV SCH (11:45)
[2023-02-11] MEDS ORDERED: GLUCOSE 40% GEL 15 GM TUBE PO PRN (11:45)
[2023-02-11] MEDS ORDERED: GLUCAGON FOR INJ 1 MG VIAL IM PRN (11:45)
[2023-02-11] MEDS ORDERED: NovoLIN-R BOLUS FROM BAG IV ONE (11:45)
[2023-02-11] MEDS ORDERED: DEXTROSE 50% 50 ML SYRINGE IV PRN (11:45)
[2023-02-11] MEDS ORDERED: GLUCOSE 10 TAB/TUBE PO PRN (11:45)
[2023-02-11] MEDS ORDERED: INSULIN REGULAR 250 UNITS in SODIUM CHLORIDE 0.9% 247.5 ML IV SCH (11:45)
[2023-02-11] MEDS ORDERED: CARBOHYDRATES FOR HYPOGLYCEMIA PO PRN (11:45)
[2023-02-11 12:07] LABS: BUN Creatinine Ratio 24.8 (10-20); Calcium 7.9 mg/dl (8.6-10.3); Creatinine Clr Calc Pharmacy 50.2 ml/min; Est GFR (African American) 73.1 ml/min; Est GFR (Non-African American) 63.1 ml/min; Potassium 4.3 mmol/L (3.5-5.1)
[2023-02-11 12:12] LABS: Troponin I High Sensitivity 13.2 pg/ml (0-20)
[2023-02-11] MEDS: POTASSIUM CHLORIDE 20 MEQ in PLASMA-LYTE A 1,000 ML IV SCH ×2 (12:29→20:39)
--- NOTE | 2023-02-11 12:46 | Electrocardiogram Report ---
Test Reason : Blood Pressure : / mmHG Vent. Rate : 087 BPM Atrial Rate : 087 BPM P-R Int : 208 ms QRS Dur : 082 ms QT Int : 356 ms P-R-T Axes : 064 -28 046 degrees QTc Int : 428 ms Sinus rhythm with Premature atrial complexes Low voltage QRS Abnormal ECG When compared with ECG of 10-DEC-2020 12:01, Premature atrial complexes are now Present Confirmed by Jeffrey Rouse ([id number]) on 02/11/2023 12:46:24 PM Referred By: Confirmed By:Harvey Rouse
[2023-02-11 13:05] LABS: Magnesium 1.9 mg/dl (1.7-2.4)
[2023-02-11] MEDS ORDERED: BETAMETHASONE DIP AUG (DIPROLENE) 0.05% CR 15 GM TUBE EXT PRN (15:39)
[2023-02-11 16:18] LABS: BUN Creatinine Ratio 23.3 (10-20); Calcium 8.2 mg/dl (8.6-10.3); Creatinine Clr Calc Pharmacy 51.2 ml/min; Est GFR (African American) 74.8 ml/min; Est GFR (Non-African American) 64.6 ml/min; Magnesium 1.9 mg/dl (1.7-2.4); Phosphorus 2.6 mg/dl (2.5-4.9); Potassium 4.5 mmol/L (3.5-5.1)
[2023-02-11] MEDS ORDERED: INSULIN ASPART PER UNIT CHARGE SC SCH ×2 (16:30)
[2023-02-11] MEDS: INSULIN ASPART PER UNIT CHARGE SC SCH ×3 (18:12→23:35)
[2023-02-11] MEDS: POT PHOSPHATE MONOBASIC W/ SOD TAB PO SCH ×2 (18:22→22:07)
[2023-02-11 20:12] LABS: BUN Creatinine Ratio 23.8 (10-20); Creatinine Clr Calc Pharmacy 52.2 ml/min; Est GFR (African American) 76.6 ml/min; Est GFR (Non-African American) 66.1 ml/min; Phosphorus 2.3 mg/dl (2.5-4.9); Potassium 4.3 mmol/L (3.5-5.1)
[2023-02-11] MEDS: ACYCLOVIR 400 MG TAB PO SCH (22:07)
[2023-02-11] MEDS: HEPARIN SOD 5,000 UNIT/0.5 ML VIAL SQ SCH (22:08)
[2023-02-11] MEDS ORDERED: PHARMACY GLYCEMIC MGMT CONSULT PRN (22:51)
[2023-02-11] MEDS ORDERED: LANTUS PER UNIT CHARGE SC STA (23:07)
[2023-02-12 00:11] LABS: BUN Creatinine Ratio 23.7 (10-20); Creatinine Clr Calc Pharmacy 56.7 ml/min; Est GFR (African American) 84.7 ml/min; Phosphorus 2.9 mg/dl (2.5-4.9); Potassium 4.7 mmol/L (3.5-5.1)
[2023-02-12 04:24] LABS: Basophils # (auto) 0.02 K/uL (0.00-0.20); Basophils % (auto) 0.3 %; Eosinophils # (auto) 0.23 K/uL (0.00-0.50); Eosinophils % (auto) 3.5 %; Hematocrit (blood only) 32.5 % (42.0-52.0); Hemoglobin 11.1 g/dl (14.0-18.0); Immature Granulocytes # (auto) 0.01 K/uL (0.01-0.20); Immature Granulocytes % (auto) 0.2 %; Lymphocytes % (auto) 15.4 %; Mean Corpuscular Hgb Conc 34.2 g/dL (32.0-36.0); Mean Corpuscular Volume 96.7 fL (80.0-100.0); Mean Platelet Volume 10.7 fL (9.4-12.4); Monocytes # (auto) 0.87 K/uL (0.11-0.59); Monocytes % (auto) 13.4 %; Neutrophils # (auto) 4.36 K/uL (1.40-6.50); Neutrophils % (auto) 67.2 %; Platelet Count 208 K/uL (130-400); RDW Coefficient of Variation 13.3 % (11.5-14.5); RDW Standard Deviation 47.3 fL (36.4-46.3); Red Blood Count 3.36 M/uL (4.70-6.10); White Blood Count 6.49 K/ul (4.8-10.8)
[2023-02-12] MEDS: POTASSIUM CHLORIDE 20 MEQ in PLASMA-LYTE A 1,000 ML IV SCH (04:28)
[2023-02-12 04:34] LABS: BUN Creatinine Ratio 23.8 (10-20); Creatinine Clr Calc Pharmacy 62.8 ml/min; Est GFR (African American) 90.6 ml/min; Est GFR (Non-African American) 78.2 ml/min; Potassium 4.3 mmol/L (3.5-5.1)
[2023-02-12 04:35] LABS: Magnesium 2.1 mg/dl (1.7-2.4); Phosphorus 2.3 mg/dl (2.5-4.9)
[2023-02-12] MEDS: INSULIN ASPART PER UNIT CHARGE SC SCH ×3 (04:36→12:19)
[2023-02-12 07:10] LABS: Magnesium 2.1 mg/dl (1.7-2.4); Phosphorus 2.5 mg/dl (2.5-4.9)
[2023-02-12 07:19] LABS: Estimated Average Glucose 183 mg/dl
[2023-02-12] MEDS ORDERED: LANTUS PER UNIT CHARGE SC ONE (08:00)
[2023-02-12] MEDS: ACYCLOVIR 400 MG TAB PO SCH (08:39)
[2023-02-12] MEDS: POT PHOSPHATE MONOBASIC W/ SOD TAB PO SCH ×2 (08:40→13:18)
[2023-02-12] MEDS: HEPARIN SOD 5,000 UNIT/0.5 ML VIAL SQ SCH (08:40)
[2023-02-12] MEDS ORDERED: BICALUTAMIDE 50 MG TAB PO SCH (09:00)
[2023-02-12] MEDS ORDERED: ASCORBIC ACID 500 MG TAB PO SCH (09:00)
[2023-02-12] MEDS ORDERED: CHOLECALCIFEROL 1,000 UNITS 25 MCG TAB PO SCH (09:00)
[2023-02-12] MEDS ORDERED: TERAZOSIN HCL 5 MG CAP PO SCH (09:00)
[2023-02-12] MEDS ORDERED: amLODIPine BESYLATE 5 MG TAB PO SCH (09:00)
[2023-02-12] MEDS ORDERED: CLOPIDOGREL BISULFATE 75 MG TAB PO SCH (09:00)
[2023-02-12] MEDS ORDERED: lisinopril 40 MG TAB PO SCH (09:00)
[2023-02-12] MEDS ORDERED: FINASTERIDE 5 MG TAB PO SCH (09:00)
[2023-02-12] MEDS ORDERED: DOXYCYCLINE HYCLATE 100 MG CAP PO SCH (10:00)
--- NOTE | 2023-02-12 12:23 | Discharge Summary ---
Date of Service February 12, 2023 Admission HPI Per Admitting Provider Beni is an 87-year-old male with PMH of T1DM, tick bite, statin myopathy, PMR, HTN, dyslipidemia, and nonocclusive CAD. He presented for transverse lower chest pain that developed around 7 AM on the morning of 02/11. Patient's (Luli) is present at the bedside and provides additional history. The patient reports that he developed gradual onset of dull chest pain that lasted for around 2 to 3 hours between 7 AM and 10 AM on 02/11. He describes the pain as "crushing". No radiation to the left arm or to the back. He did not take any pain medication at home. He reports that he tried to walk on the treadmill this morning, as he thought the pain was due to indigestion, however movement did not alleviate the pain. He rated the pain 8/10 at its worst. On arrival in the ED, patient found a tick (engorged) on his right medial elbow, which was removed in the ED. He did report that he was out walking in the [place] on 02/10. Patient has an extensive history of T1DM and uses a Dexcom and pump for diabetes. He confused 4u insulin this morning, and received an additional 5u in the ED. Reports that he took all of his regular morning medications, including Plavix. The only recent change in medication was for his prostate (finasteride). No history of tick bites or Lyme disease. Patient denies smoking, alcohol use, vaping, and recreational drug use. He endorses using chewing snuff. Vitals stable at time of admission. ED course: Tick removal Regular insulin 5u IV NSS 500 mL Doxycycline 200 mg p.o. ROS: Patient endorses headache (which she believes is secondary to high sugar), transverse chest pain (which has largely resolved in the ED), joint aches, wrist swelling that developed 2 weeks ago, lump under right breast, as well as constipation. Patient denies fever, rashes, bull's-eye rashes, chills, night sweats, dizziness, lightheadedness, SOB, pleuritic CP, abdominal pain, N/V/D, urinary symptoms, burning with urination, numbness or tingling going down the arms or legs. Dexcom/pump settings: Basal 13.65 daily; max basal 2u/hr, max bolus 10u. Patient's reports that his insulin levels are not well-controlled at home, and that he commonly bounces between hyperglycemia (in the 300mg/dL range) and hypoglycemia (in the 40-50mg/dL range). Patient reports he is aspirin (hives) as well as imaging dye/contrast (face swelling). Please see Dr. Varghese's attestation for any changes to treatment plan. Principal Diagnosis Noncardiac chest pain, tick bite right elbow, right breast mass Discharge Exam General-alert and oriented x3, no fevers, no chills HEENT-head atraumatic and normocephalic, pupils equal and reactive to light, extraocular muscles intact Neck-no lymphadenopathy or thyromegaly, trachea midline Chest-clear to auscultation percussion. No rales wheezing or rhonchi Cardiac-regular rate and rhythm, normal S1 and S2 Abdomen-normal bowel sounds, nontender, no hepatosplenomegaly Extremities-no cyanosis, clubbing, or edema Neuro-cranial nerves II through XII intact, motor and sensory function within normal limits, strength symmetrical , no focal deficits Psych-normal affect, normal mood Discharge Data Allergies Allergy/AdvReac Type Severity Reaction Status Date / Time celecoxib Allergy Intermediate Hives Verified 02/08/23 09:42 levofloxacin Allergy Intermediate Hives Verified 02/08/23 09:42 tramadol Allergy Intermediate Hives Verified 02/08/23 09:42 strawberry Allergy Mild RASH Verified 02/08/23 09:42 tomato Allergy Mild RASH Verified 02/08/23 09:42 acetaminophen Allergy Unknown Unknown Verified 02/08/23 09:42 aspirin Allergy Unknown Unknown Verified 02/08/23 09:42 atorvastatin Allergy Unknown Unknown Verified 02/08/23 09:42 fluvastatin Allergy Unknown Unknown Verified 02/08/23 09:42 Iodinated Contrast Media Allergy Unknown Unknown Verified 02/08/23 09:42 Penicillins Allergy Unknown Unknown Verified 02/08/23 09:42 simvastatin Allergy Unknown Unknown Verified 02/08/23 09:42 tamsulosin [From Flomax] AdvReac Mild Body aches Verified 02/08/23 09:42 rosuvastatin AdvReac Unknown Unknown Verified 02/08/23 09:42 Consultations 02/11/23 10:52 ED Decision to Admit Stat Hospital Course (1) Chest pain: Acute coronary syndrome ruled out. No acute EKG changes. Troponin series is negative. Chest discomfort has resolved. Primary care provider can consider outpatient stress testing if needed. (2) Type 1 diabetes mellitus with hyperglycemia: Patient uses Dexcom and insulin pump at home, but notes episodes of severe hyperglycemia in the 400mg/dL range at home, as well as rebound hypoglycemia in the 40-50mg/dL range. Patient follows with diabetes clinic. Last A1c at 7.3% on 11/01/2022. Insulin infusion was started in the ED. He will return to his insulin pump at the time of discharge. No evidence of DKA. (3) Tick bite of forearm: Tick removed from patient's right medial elbow in the ED. multiple lab studies are pending. He will remain on doxycycline 100 mg twice a day for 4 weeks as a precaution. (4) Non-occlusive coronary artery disease: non-ST segment [place] in 2003. Continue Plavix therapy. Allergic to aspirin (5) Dyslipidemia: Statin intolerance. Heart healthy diet (6) Papillary transitional cell carcinoma of bladder: Bladder cancer/LUTS. Outpatient urology follow-up. Continue finasteride and terazosin (7) Hypertension: Stable. Continue amlodipine, lisinopril (8) Lump of right breast: He will need further outpatient follow-up including right breast ultrasound. Plan Home today, February 12 Total Time Total Time Spent Total Time Spent (In Minutes): 45 minutes Discharge Plan Discharge Items Patient Disposition: Home - Self-Care Reason For Visit: CHEST PAIN, HYPERGLYCEMIA Discharge Diagnosis: Noncardiac chest pain, tick bite, right breast mass Activity: Resume your previous activity Non-emergency contact: Primary Care Provider Call non-emergency contact if: your symptoms worsen Follow-up/Referrals: Leonela Levine DO [Primary Care Provider] - Diet: Carb Consistent or DM2 and Heart Healthy Addtl Attending Provider Instructions: Take doxycycline 100 mg twice a day for 4 weeks. All other medications remain the same. Primary care provider will further evaluate the right breast lump Pending Studies at Discharge: Yes Studies:: Lyme disease tests Stand-Alone Forms: [employer], Smoking Cessation Medications and DC Order Prescriptions: New doxycycline hyclate 100 mg Capsule 100 mg PO BID Qty: 56 0RF Continued (DME) Quick-Set Paradigm Infusion Set See Rx Instructions .ROUTE .MEDSUPPLY Qty: 45 3RF Rx Instructions: insert a new one every 2-3 days (DME) Dexcom G6 Edge Burnisher Uppers Misc See Rx Instructions .Route Qty: 1 0RF Rx Instructions: Use to monitor blood sugars daily cholecalciferol (vitamin D3) 1,000 unit capsule 1,000 units PO .COMPLEX Qty: 30 5RF Rx Instructions: 1,000 unit PO Take one tablet in the summer - 3 tablets in the winter. ; clopidogrel [Plavix] 75 mg tablet 75 mg PO DAILY Qty: 30 5RF finasteride [Proscar] 5 mg tablet 5 mg PO DAILY Qty: 30 5RF terazosin 5 mg capsule 5 mg PO DAILY (DME) Dexcom G6 Sensor Device See Rx Instructions .Route Qty: 3 5RF Rx Instructions: change every 10 days (DME) Dexcom G6 Transmitter Device See Rx Instructions .Route Qty: 1 3RF Rx Instructions: change every 90 days (DME) insulin syringe-needle U-100 [BD Insulin Syringe Ultra-Fine] 1 mL 31 gauge x 5/16 syringe See Rx Instructions .Route Qty: 100 6RF Rx Instructions: use for Novolog incase of pump failure insulin aspart U-100 [Novolog U-100 Insulin aspart] 100 unit/mL solution 35 - 45 unit continuous subcutaneous infusion CONTINOUS Qty: 50 3RF Rx Instructions: Pt uses pump 35-45 units daily. (DME) OneTouch Ultra Blue Test Strip Strip See Rx Instructions .ROUTE .MEDSUPPLY Rx Instructions: Test blood sugar once daily PRN acyclovir 400 mg tablet 400 mg PO BID betamethasone dipropionate 0.05 % cream 1 applic topical DAILY PRN (Reason: Skin Irritation) amlodipine 5 mg tablet 5 mg PO DAILY lisinopril [Zestril] 40 mg tablet 40 mg PO .COMPLEX Qty: 90 3RF Rx Instructions: 40 mg orally TAKE ONE 1 PILL IN AM; ascorbic acid (vitamin C) 500 mg tablet 500 mg PO DAILY (DME) lancets [OneTouch UltraSoft Lancets] Misc See Rx Instructions .ROUTE .MEDSUPPLY Qty: 50 Rx Instructions: Test blood sugar once daily PRN bicalutamide [Casodex] 50 mg tablet 50 mg PO DAILY Qty: 30 5RF Gvoke HypoPen 2-Pack 0.5 mg/0.1 mL auto-injector 1 mg subcut .COMPLEX PRN (Reason: LOW BSG) Rx Instructions: 1 mg subcut every 20 minutes until target blood sugar reached; Discharge Orders: Discharge Order (Routine); Ordered 02/12/23 Ordered By: Danilo Hamm Admission Data Admit Date/Time: 02/11/23 12:18 Attending Provider: Danilo Hamm Admit Provider: Chele Varghese Primary Care Provider: Leonela Levine Other Providers: Chele Varghese Coding Level of Care Code 66921 INP/OBS DISCH >30 MIN Diagnoses Chest pain R07.9 Chest pain type: unspecified Type 1 diabetes mellitus with hyperglycemia E10.65 Tick bite of forearm S50.861A; W57.XXXA Encounter type: initial encounter Laterality: right Non-occlusive coronary artery disease I25.10 Dyslipidemia E78.5 Papillary transitional cell carcinoma of bladder C67.9 Essential hypertension I10 Hypertension type: essential hypertension Lump of right breast N63.10
--- NOTE | 2023-02-12 12:25 | Pharmacy Report ---
Pharmacy Glycemic Short Note 2 - Date of Service February 12, 2023 - Glycemic Short BSG Results (Last 24 hours): 02/11/23 02/11/23 02/11/23 11:31 13:26 14:45 Glucose 486 H* POC Glucose 334 H* 424 H* 02/11/23 02/11/23 02/11/23 15:34 15:55 16:49 Glucose 449 H* POC Glucose 408 H* 330 H* 02/11/23 02/11/23 02/11/23 18:01 19:03 19:36 Glucose 119 H POC Glucose 282 H 199 H 02/11/23 02/11/23 02/11/23 20:17 20:18 20:37 Glucose POC Glucose 53 L* 58 L* 150 H 02/11/23 02/11/23 02/11/23 21:41 21:56 22:16 Glucose POC Glucose 96 103 H 127 H 02/11/23 02/11/23 02/12/23 23:27 23:37 01:16 Glucose 193 H POC Glucose 177 H 163 H 02/12/23 02/12/23 02/12/23 02:30 03:55 04:35 Glucose 116 H POC Glucose 133 H 126 H 02/12/23 02/12/23 07:28 11:32 Glucose POC Glucose 142 H 149 H OUTPATIENT ANTIDIABETIC REGIMEN: * Novolog pump TDD ~ 28 units; basal rate of 13 units/day * HbA1C = 8% (02/12/23) ASSESSMENT: * Mr Bowens is an 87 y/o M with a PMH of T1DM who presents with chest pain and hyperglycemia. Patient initially placed on insulin infusion in ER - this was discontinued around 0200. Prior to this patient had received 10 units of Lantus. * Based upon outpatient notes, basal rate for insulin pump is 13 units. Patient has a diet. Ordered additional 3 units this AM to make 13 units total. Will then give 13 units nightly. * Novolog weight-based stress of 2 for now. Titrate as appropriate. PLAN FOR INPATIENT GLYCEMIC CONTROL: * Basal insulin * Lantus 13 units SQ HS * Bolus insulin * NovoLog per scale ACHS or Q6hrs while NPO * Goal Range: Low 120 mg/dL - High 160 mg/dL * Correction Factor: 30 mg/dL/unit * Nutritional / Prandial insulin per carb ratio of 1 unit per 10 grams CHO consumed
[2023-02-12] MEDS ORDERED: LANTUS PER UNIT CHARGE SC SCH (21:00)
== END 2023-02-12 13:47 | disposition home or self-care (01) ==
LOC: ED 08:09 → EDINP 08:09 → SUATTDRO 12:18 → 2S 15:18